=== PATIENT | male | born 1980 | race Caucasian/White ===

== ENCOUNTER → 2016-08-13 | Outpatient (CLI) | payer BC ==
--- NOTE | 2016-08-13 10:44 | US ---
EXAMINATION TYPE: US abdomen limited DATE OF EXAM: 08/13/2016 COMPARISON: NONE CLINICAL HISTORY: R94.5 ABN LIVER FUNCTIONS. Patient stated is taking antidepressant, sleep medicati on, and one for withdrawal from pain medication EXAM MEASUREMENTS: Liver Length: 14.7 cm Gallbladder Wall: 0.2 cm CBD: 0.3 cm Right Kidney: 11.1 x 5.0 x 4.2 cm Pancreas: wnl Liver: fatty Gallbladder: wnl Evidence for sonographic Pritchett's sign: No CBD: wnl Right Kidney: wnl IMPRESSION: No distinct abnormality seen.
== END | disposition home or self-care (01) ==
LOC: RADUSWWP 09:54
PROVIDERS: ATTEND Internal Medicine
DX: R10.84 Generalized abdominal pain (principal); R94.5 Abnormal results of liver function studies
CPT/HCPCS: 76705